=== PATIENT | female | born 2005 | race Caucasian/White ===

== ENCOUNTER 2025-04-24 14:35 | Emergency (ER) | payer SELFPAY ==
[2025-04-24 15:42] LABS: APPEARANCE,URINE CLEAR; GLUCOSE,URINE NEGATIVE (NEGATIVE); OCCULT BLOOD,URINE SMALL (NEGATIVE)
[2025-04-24 15:55] LABS: SQUAMOUS EPITHELIAL CELLS,UR FEW
[2025-04-24 16:54] LABS: BASOPHILS ABSOLUTE AUTO 0.05 K/uL (0.00-0.20); BASOPHILS PERCENT AUTO 0.5 % (0.0-1.0); EOSINOPHILS ABSOLUTE AUTO 0.21 K/uL (0.00-0.45); EOSINOPHILS PERCENT AUTO 2.2 % (0.0-6.0); IMMATURE GRAN ABSOLUTE AUTO 0.02 K/uL (0.00-0.05); IMMATURE GRAN PERCENT AUTO 0.2 % (0.0-0.4); LYMPHOCYTES ABSOLUTE AUTO 3.42 K/uL (1.00-4.80); LYMPHOCYTES PERCENT AUTO 35.6 % (24.0-44.0); MEAN PLATELET VOLUME 8.3 fL (9.4-12.3); MONOCYTES ABSOLUTE AUTO 0.77 K/uL (0.00-0.80); MONOCYTES PERCENT AUTO 8.0 % (0.0-8.0); NEUTROPHILS ABSOLUTE AUTO 5.13 K/uL (1.80-7.70); NEUTROPHILS PERCENT AUTO 53.5 % (41.0-71.0); NRBC ABSOLUTE 0.00 K/uL (0.00-0.02); NRBC PERCENT 0.0 /100WBC (0.0-0.2); PLATELET COUNT,PLT 358 K/uL (150-400); RED BLOOD CELL COUNT 4.94 M/uL (4.10-5.30); WHITE BLOOD CELL COUNT,WBC 9.60 K/uL (3.9-11.3)
[2025-04-24 17:06] LABS: APPEARANCE,URINE CLEAR; GLUCOSE,URINE NEGATIVE (NEGATIVE); OCCULT BLOOD,URINE TRACE-INTACT (NEGATIVE)
[2025-04-24 17:15] LABS: EPITHELIAL CELLS,URINE MODERATE (NONE-FEW)
[2025-04-24 17:19] LABS: A/G RATIO 0.9 (0.9-1.6); ALANINE AMINOTRANSFERASE,ALT 20.0 IU/L (14-63); ASPARTATE AMNIOTRANSFERASE,AST 22.0 IU/L (15-37); BILIRUBIN TOTAL 0.6 mg/dL (0.2-1.0); BLOOD UREA NITROGEN,BUN 8.0 mg/dL (7.0-18.0); CARBON DIOXIDE,CO2 28.7 mmol/L (21.0-32.0); CHLORIDE,CL 106.0 mmol/L (98-107); CREATININE 0.5 mg/dL (0.6-1.0); EST CRCL DRUG DOSING (CG) 180.25 mL/min; GLUCOSE RANDOM 84.0 mg/dL (74-106); POTASSIUM,K 4.2 mmol/L (3.5-5.1); PROTEIN TOTAL,TP 7.9 g/dL (6.4-8.2); SODIUM,NA 142.0 mmol/L (136-145)
[2025-04-24 17:21] LABS: ESTIMATED GFR 137.0 mL/min (>60)
[2025-04-24] MEDS: Iopamidol 755 Mg/ML 100 ML Bottle IVPUSH ONE (18:10)
== END 2025-04-24 19:46 | disposition home or self-care (01) ==
LOC: MW.ED 14:35
DX: M51.360 Other intervertebral disc degeneration, lumbar region with discogenic back pain only (principal); Z79.899 Other long term (current) drug therapy
CPT/HCPCS: 36415; 74177; 80053; 81001; 81025; 85025; 99284; A9270; Q9967